=== PATIENT | female | born 1965 | race Caucasian/White ===

== ENCOUNTER → 2017-04-03 | Outpatient (CLI) | payer OTHER | END | disposition home or self-care (01) | LOC: US 10:00 | PROC: B34 Imaging, Upper Arteries, Ultrasonography (ICD-10-PCS; principal; 2017-04-03) | DX: Z94.0 Kidney transplant status (principal) | CPT/HCPCS: Q0092 ==

== ENCOUNTER 2017-06-20 18:52 | Emergency (ER) | payer OTHER ==
[~2017-06-20] VITALS: Ht 167.6 cm; Wt 95.2 kg
[2017-06-20 19:08] VITALS: Ht 167.6 cm; Wt 95.2 kg
[2017-06-20 20:34] VITALS: BP 136/70
== END 2017-06-20 20:34 | disposition home or self-care (01) ==
LOC: ED 18:52
DX: S20.219A Contusion of unspecified front wall of thorax, initial encounter (principal); I10 Essential (primary) hypertension; N18.6 End stage renal disease; V89.2XXA Person injured in unspecified motor-vehicle accident, traffic, initial encounter; Y93.79 Activity, other specified sports and athletics; Y92.89 Other specified places as the place of occurrence of the external cause; Y99.8 Other external cause status

== ENCOUNTER 2017-07-01 20:39 | Inpatient (IN) | payer OTHER ==
[~2017-07-01] VITALS: Ht 167.6 cm; Wt 95.3 kg
[2017-07-01 20:55] VITALS: Ht 167.6 cm; Wt 95.3 kg
[2017-07-01 23:06] LABS: BASOPHIL % 0.3 % (0-2); PLATELET COUNT 152 x10^3mcL (130-400)
[2017-07-01 23:07] LABS: RED CELL DISTRIBUTION WIDTH 14.7 % (11.5-14.5)
[2017-07-01 23:26] LABS: BILIRUBIN TOTAL 0.4 mg/dL (0.20-1.00); CARBON DIOXIDE 29.6 mmol/L (21-32); MAGNESIUM 2.8 mg/dL (1.8-2.4); TOTAL PROTEIN, SERUM 7.5 g/dL (6.4-8.2)
[2017-07-01 23:37] LABS: ALBUMIN 3.3 g/dL (3.4-5.0)
[2017-07-01 23:38] LABS: POTASSIUM SERUM 6.4 mmol/L (3.5-5.1)
[2017-07-01 23:39] LABS: CREATININE SERUM 10.1 mg/dL (0.6-1.0)
[2017-07-01] MEDS ORDERED: RENVELA800 M1 PO (23:57)
[2017-07-01] MEDS ORDERED: LEVOTHYROXINE0.05 M2 PO (23:59)
[2017-07-02 00:57] VITALS: BP 154/90
[2017-07-02 01:02] LABS: microscopic required? YES; urine erythrocyte NEGATIVE (NEGATIVE)
[2017-07-02 01:08] LABS: CHOLESTEROL/HDL RATIO 4.2; PHOSPHOROUS 3.6 mg/dL (2.5-4.9)
[2017-07-02 01:11] LABS: AMPHETAMINE QUAL UR NONE DETECTED (NEG <=1000)
[2017-07-02 01:18] LABS: FREE T4 1.35 ng/dL (0.76-1.46); FREE THYROXINE INDEX 3.3 ug/dL (1.4-4.5); T4(THYROXINE) 9.3 ug/dL (4.7-13.3)
[2017-07-02] MEDS ORDERED: KIONEX15 GM/60 M (01:37)
[2017-07-02 02:30] LABS: T3 TOTAL 1.26 ng/mL
[2017-07-02 06:10] LABS: BASOPHIL % 0.3 % (0-2); PLATELET COUNT 143 x10^3mcL (130-400); RED CELL DISTRIBUTION WIDTH 14.8 % (11.5-14.5)
[2017-07-02 06:25] LABS: CALCIUM 8.9 mg/dL (8.5-10.1); CARBON DIOXIDE 27.4 mmol/L (21-32); POTASSIUM SERUM 5.2 mmol/L (3.5-5.1)
[2017-07-02 06:31] LABS: CREATININE SERUM 10.1 mg/dL (0.6-1.0)
[2017-07-02 09:31] VITALS: BP 116/68
[2017-07-02 12:14] VITALS: BP 124/81
[2017-07-02 15:15] VITALS: BP 112/76
[2017-07-02 16:57] VITALS: BP 109/77
[2017-07-02 20:50] VITALS: BP 104/62
[2017-07-03 05:44] VITALS: BP 137/70
[2017-07-03 06:49] LABS: BASOPHIL % 0.3 % (0-2); PLATELET COUNT 145 x10^3mcL (130-400)
[2017-07-03 06:59] LABS: RED CELL DISTRIBUTION WIDTH 14.9 % (11.5-14.5)
[2017-07-03 07:14] LABS: CALCIUM 8.9 mg/dL (8.5-10.1); MAGNESIUM 2.3 mg/dL (1.8-2.4); PHOSPHOROUS 5.5 mg/dL (2.5-4.9); POTASSIUM SERUM 4.5 mmol/L (3.5-5.1)
[2017-07-03 07:18] LABS: CREATININE SERUM 8.4 mg/dL (0.6-1.0)
[2017-07-03 10:28] VITALS: BP 109/68
[2017-07-03 11:50] VITALS: BP 109/68
== END 2017-07-03 13:15 | disposition home or self-care (01) | DRG 640 ==
LOC: ED 20:39 → DU 23:55
PROVIDERS: Emergency Medicine; Family Medicine
DX: E87.5 Hyperkalemia (principal); N17.0 Acute kidney failure with tubular necrosis; N18.6 End stage renal disease; G93.41 Metabolic encephalopathy; I12.0 Hypertensive chronic kidney disease with stage 5 chronic kidney disease or end stage renal disease; E83.41 Hypermagnesemia; G62.9 Polyneuropathy, unspecified; M85.88 Other specified disorders of bone density and structure, other site; D63.1 Anemia in chronic kidney disease; E78.2 Mixed hyperlipidemia; E03.9 Hypothyroidism, unspecified; E66.9 Obesity, unspecified; Z68.33 Body mass index [BMI] 33.0-33.9, adult; Z99.2 Dependence on renal dialysis
CPT/HCPCS: 83880; 84439; J7030

== ENCOUNTER 2018-11-11 23:50 | Emergency (ER) | payer OTHER ==
[~2018-11-11] VITALS: Ht 167.6 cm; Wt 119.3 kg
[~2018-11-11 23:50] MED LIST: KIONEX15 GM/60 M; LEVOTHYROXINE0.05 M2 PO; RENVELA800 M1 PO
[2018-11-11 23:59] VITALS: Ht 167.6 cm; Wt 119.3 kg
[2018-11-12 01:53] VITALS: BP 138/72
== END 2018-11-12 01:53 | disposition home or self-care (01) ==
LOC: ED 23:50
DX: H66.92 Otitis media, unspecified, left ear (principal); H60.92 Unspecified otitis externa, left ear; M10.9 Gout, unspecified; N18.6 End stage renal disease; Z94.0 Kidney transplant status

== ENCOUNTER 2019-01-15 19:19 | Emergency (ER) | payer OTHER ==
[~2019-01-15] VITALS: Ht 167.6 cm; Wt 118.4 kg
[2019-01-15 19:25] VITALS: Ht 167.6 cm; Wt 118.4 kg
[2019-01-15 21:15] VITALS: BP 129/62
== END 2019-01-15 21:15 | disposition home or self-care (01) ==
LOC: ED 19:19
DX: R05 Cough (principal); I12.0 Hypertensive chronic kidney disease with stage 5 chronic kidney disease or end stage renal disease; N18.6 End stage renal disease; Z99.2 Dependence on renal dialysis

== ENCOUNTER 2019-02-26 13:42 | Emergency (ER) | payer OTHER ==
[~2019-02-26] VITALS: Ht 160 cm; Wt 118.4 kg
[2019-02-26 13:46] VITALS: Ht 160 cm; Wt 118.4 kg
[2019-02-26 14:31] LABS: CALCIUM 8.4 mg/dL (8.5-10.1); CARBON DIOXIDE 27.9 mmol/L (21-32); CHLORIDE SERUM 107 mmol/L (98-107); CREATININE SERUM 0.9 mg/dL (0.6-1.0); GFR1 > 60 mL/min; GLUCOSE SERUM 133 mg/dL (74-106); POTASSIUM SERUM 4.7 mmol/L (3.5-5.1); SODIUM SERUM 140 mmol/L (136-145)
[2019-02-26 14:35] LABS: ALBUMIN 3.4 g/dL (3.4-5.0); ALKALINE PHOSPHATASE 96 U/L (46-116); ALT/SGPT 36 U/L (14-59); AST/SGOT 24 U/L (15-37); BILIRUBIN TOTAL 0.5 mg/dL (0.20-1.00); LIPASE 135 IU/L (73-393); TOTAL PROTEIN, SERUM 6.7 g/dL (6.4-8.2)
[2019-02-26 14:39] LABS: BASOPHIL % 0.2 % (0-2); PLATELET COUNT 194 x10^3mcL (130-400); RED CELL DISTRIBUTION WIDTH 14.4 % (11.5-14.5)
[2019-02-26 15:17] LABS: UA SPECIFIC GRAVITY 1.015 (1.005-1.035); microscopic required? YES; urine erythrocyte 1+ (NEGATIVE)
[2019-02-26 16:10] VITALS: BP 148/98
== END 2019-02-26 16:10 | disposition home or self-care (01) ==
LOC: ED 13:42
PROVIDERS: Emergency Medicine
DX: K29.70 Gastritis, unspecified, without bleeding (principal); I12.0 Hypertensive chronic kidney disease with stage 5 chronic kidney disease or end stage renal disease; N18.6 End stage renal disease
CPT/HCPCS: 36415; 82962; Q0092

== ENCOUNTER 2019-03-31 07:50 | Emergency (ER) | payer OTHER ==
[~2019-03-31] VITALS: Ht 162.6 cm; Wt 131.5 kg
[2019-03-31 07:56] VITALS: Ht 162.6 cm; Wt 131.5 kg
[2019-03-31 12:50] VITALS: BP 125/71
== END 2019-03-31 12:50 | disposition home or self-care (01) ==
LOC: EDBD 07:50 → ED 07:50
DX: S20.01XA Contusion of right breast, initial encounter (principal); M54.6 Pain in thoracic spine; E11.9 Type 2 diabetes mellitus without complications; I10 Essential (primary) hypertension; E78.00 Pure hypercholesterolemia, unspecified; E66.01 Morbid (severe) obesity due to excess calories; Z68.42 Body mass index [BMI] 45.0-49.9, adult; Z94.0 Kidney transplant status; V43.52XA Car driver injured in collision with other type car in traffic accident, initial encounter; Y93.I9 Activity, other involving external motion; Y92.488 Other paved roadways as the place of occurrence of the external cause; Y99.8 Other external cause status
CPT/HCPCS: 76641

== ENCOUNTER 2019-06-30 02:45 | Emergency (ER) | payer OTHER, MEDICAID ==
[~2019-06-30] VITALS: Ht 167.6 cm; Wt 110.7 kg
[2019-06-30 02:58] VITALS: Ht 167.6 cm; Wt 110.7 kg
[2019-06-30 04:46] LABS: UA SPECIFIC GRAVITY 1.015 (1.005-1.035); microscopic required? YES; urine erythrocyte 2+ (NEGATIVE)
[2019-06-30 05:14] VITALS: BP 138/79
== END 2019-06-30 05:14 | disposition home or self-care (01) ==
LOC: ED 02:45
PROVIDERS: Specialist
DX: B34.9 Viral infection, unspecified (principal); I10 Essential (primary) hypertension; E11.9 Type 2 diabetes mellitus without complications
CPT/HCPCS: 87804; J1885; Q0162